=== PATIENT | female | born 1930 | race American Indian/Alaskan Native ===

== ENCOUNTER 2016-07-28 15:14 | Inpatient (IN) | payer MEDICARE ==
--- NOTE | 2016-07-28 17:49 | Emergency Department Report ---
ED Abdominal Pain HPI - General Chief Complaint: Abdominal Pain Stated Complaint: SEVERE CONSTIPATION Time Seen by Provider: 07/28/16 17:48 Source: patient Mode of arrival: Ambulatory Limitations: No Limitations - History of Present Illness Initial Comments: Family states patient has not had a bowel movement in several days. He tried Dulcolax suppository with minimal stool. They don't referred abdominal pain. They deny vomiting. There's been no recent fever. They have not given an enema. Patient has a significant cardiomyopathy and was here for sustained V. tach last year. She has a history of an umbilical hernia for which surgery obviously would not be recommended at her age. -: days(s) Associated Symptoms: denies other symptoms - Related Data Previous Rx's Medication Instructions Recorded Last Taken Type Carvedilol [Coreg] 25 mg PO BID #60 tablet 12/08/15 Unknown Rx Furosemide [Lasix TAB] 40 mg PO QDAY #30 tablet 12/09/15 Unknown Rx Lisinopril [Zestril TAB] 10 mg PO QDAY #30 tablet 12/09/15 Unknown Rx Potassium Chloride [K-Dur] 20 meq PO QDAY #30 tablet 12/09/15 Unknown Rx Allergies Allergy/AdvReac Type Severity Reaction Status Date / Time No Known Allergies Allergy Verified 12/04/15 10:21 ED Review of Systems ROS: Stated complaint: SEVERE CONSTIPATION Other details as noted in HPI Comment: Unobtainable due to pts medical conditions ED Past Medical Hx - Past Medical History Hx Hypertension: Yes Hx Heart Attack/AMI: No Hx Congestive Heart Failure: Yes Hx Diabetes: No Hx Deep Vein Thrombosis: No Hx Pulmonary Embolism: No Hx Liver Disease: No Hx Renal Disease: No Hx Sickle Cell Disease: No Hx Arthritis: Yes Hx Kidney Stones: No Hx Asthma: No Hx COPD: No Hx Tuberculosis: No Hx HIV: No Additional medical history: high cholesterol - Surgical History Hx Coronary Stent: No Hx Open Heart Surgery: No Hx Pacemaker: No Hx Internal Defibrillator: No Hx Cholecystectomy: No Hx Appendectomy: Yes Hx Breast Surgery: No Additional Surgical History: perforated appendix. hernia repair s/p appendix rupture. - Social History Smoking Status: Never Smoker Substance Use Type: None - Medications Home Medications: Home Medications Medication Instructions Recorded Confirmed Last Taken Type Carvedilol [Coreg] 25 mg PO BID #60 tablet 12/08/15 Unknown Rx Furosemide [Lasix TAB] 40 mg PO QDAY #30 tablet 12/09/15 Unknown Rx Lisinopril [Zestril TAB] 10 mg PO QDAY #30 tablet 12/09/15 Unknown Rx Potassium Chloride [K-Dur] 20 meq PO QDAY #30 tablet 12/09/15 Unknown Rx ED Physical Exam - General Limitations: No Limitations General appearance: alert, in no apparent distress - Head Head exam: Present: atraumatic, normocephalic - Eye Eye exam: Present: normal appearance. Absent: scleral icterus - ENT ENT exam: Present: mucous membranes dry - Neck Neck exam: Present: normal inspection - Respiratory Respiratory exam: Present: normal lung sounds bilaterally. Absent: respiratory distress - Cardiovascular Cardiovascular Exam: Present: regular rate, normal rhythm. Absent: systolic murmur, diastolic murmur, rubs, gallop - GI/Abdominal GI/Abdominal exam: Present: soft, normal bowel sounds, hernia (patient does have a umbilical defect but no protruding hernia sac). Absent: distended, tenderness, guarding, rebound, rigid - Extremities Exam Extremities exam: Present: normal inspection. Absent: pedal edema - Back Exam Back exam: Present: normal inspection - Neurological Exam Neurological exam: Present: CN II-XII intact (on limited exam except very hard of hearing), other (no acute focal deficit). Absent: motor sensory deficit - Psychiatric Psychiatric exam: Present: normal affect, normal mood - Skin Skin exam: Present: warm, dry, intact, normal color. Absent: rash ED Course Vital Signs 07/28/16 07/28/16 15:40 17:34 Temperature 99.4 F Pulse Rate 58 L 89 Respiratory 20 18 Rate Blood Pressure 203/113 Blood Pressure 124/76 [Right] O2 Sat by Pulse 100 98 Oximetry - Reevaluation(s) Reevaluation #1: Patient appears quite volume depleted. She has an anion gap acidosis. She is mildly hyponatremic. I don't think it would be riley to start enemas at this point with her low sodium. Her platelet count has fallen into the 80s. We will check a lactic acid level and coagulation profile. We will start her on gentle rehydration. She'll be admitted to the hospitalist service further care and evaluation. I will check some plain radiographs. She does not have signs of obstruction or incarceration of her umbilical area. She is referred to Dr. Mejia of the hospital service. 07/28/16 18:16 ED Medical Decision Making - Lab Data Result diagrams: 07/28/16 17:19 07/28/16 17:19 Laboratory Results - last 24 hr 07/28/16 17:19 WBC 8.1 RBC 3.85 Hgb 12.6 Hct 37.2 MCV 97 MCH 33 H MCHC 34 RDW 13.0 L Lymph % (Auto) 11.8 L [place] % (Auto) 7.0 Eos % (Auto) 0.1 Baso % (Auto) 0.5 Lymph # 1.0 L [place] # 0.6 Eos # 0.0 Baso # 0.0 Seg Neutrophils % 80.6 H Seg Neutrophils # 6.6 Laboratory Results - last 24 hr 07/28/16 07/28/16 17:19 17:19 WBC 8.1 RBC 3.85 Hgb 12.6 Hct 37.2 MCV 97 MCH 33 H MCHC 34 RDW 13.0 L Lymph % (Auto) 11.8 L [place] % (Auto) 7.0 Eos % (Auto) 0.1 Baso % (Auto) 0.5 Lymph # 1.0 L [place] # 0.6 Eos # 0.0 Baso # 0.0 Seg Neutrophils % 80.6 H Seg Neutrophils # 6.6 Sodium 134 L Potassium 4.1 Chloride 97.7 L Carbon Dioxide 20 L Anion Gap 20 BUN 10 Creatinine 0.6 L Estimated GFR > 60 BUN/Creatinine Ratio 16.66 Glucose 141 H Calcium 8.9 Total Bilirubin 1.20 AST 16 ALT 9 Alkaline Phosphatase 106 Total Protein 7.7 Albumin 3.9 Albumin/Globulin Ratio 1.0 Lipase 17 Critical care attestation.: If time is entered above; I have spent that time in minutes in the direct care of this critically ill patient, excluding procedure time. ED Disposition Clinical Impression: Hyponatremia, Volume depletion, Metabolic acidosis, increased anion gap, Thrombocytopenia Disposition: OP ADMITTED IP TO THIS HOSP Is pt being admited?: Yes Does the pt Need Aspirin: No Condition: Stable Instructions: Abdominal Pain (ED) Referrals: PRIMARY CARE, [Primary Care Provider] - 3-5 Days Time of Disposition: 18:18
[2016-07-28 17:57] LABS: Alanine Aminotransferase 9 units/L (7-56); Albumin 3.9 g/dL (3.9-5); Alkaline Phosphatase 106 units/L (35-129); Anion Gap 20 mmol/L; BUN/Creatinine Ratio 16.66; Blood Urea Nitrogen 10 mg/dL (7-17); Calcium 8.9 mg/dL (8.4-10.2); Carbon Dioxide 20 mmol/L (22-30); Chloride 97.7 mmol/L (98-107); Glucose 141 mg/dL (65-100); Lipase 17 units/L (13-60); Potassium 4.1 mmol/L (3.6-5.0); Sodium 134 mmol/L (137-145); Total Protein 7.7 g/dL (6.3-8.2)
[2016-07-28 18:10] LABS: Red Blood Count TNR M/mm3 (3.65-5.03); White Blood Count TNR K/mm3 (4.5-11.0)
[2016-07-28 18:11] LABS: Hematocrit TNR % (30.3-42.9); Hemoglobin TNR gm/dl (10.1-14.3); Mean Corpuscular HGB Conc TNR % (30-34); Mean Corpuscular Hemoglobin TNR pg (28-32); Mean Corpuscular Volume TNR fl (79-97)
[2016-07-28 18:12] LABS: Mean Platelet Volume TNR fl (6-12); Platelet Count TNR K/mm3 (140-440); Red Cell Distribution Width TNR % (13.2-15.2)
[2016-07-28] MEDS ORDERED: NACL 0.9% 1000 ML 1,000 ML IV ONE (18:12)
[2016-07-28 18:13] LABS: Eosinophils % (Auto) TNR % (0.0-4.3)
--- NOTE | 2016-07-28 18:13 | History and Physical Report ---
History of Present Illness Chief complaint: I feel bloated, and I cant use the bathroom History of present illness: 85 YO Female with HTN, CHF, OA, HLD presents to ED for evaluation. Pt states that she has been experiencing abdominal pain for the past 3 days with worsening symptoms over the past 12 hours. Pt has not had a regular bowel movement in 6 days. Pt has tried dulcolax without relief. Pt states that pain is 4/10, diffuse, constant, no aggrevating, or alleviating factors. Pt denies feculent vomiting, NVD, BRBPR, Unintentional weight loss, night sweats, trauma, skin rashes, synocpe, recent ill contacts. Past History Past Medical History: arthritis, heart failure, hypertension Past Surgical History: appendectomy, bowel surgery Social history: . denies: smoking, alcohol abuse, prescription drug abuse Family history: hypertension Medications and Allergies Allergies Allergy/AdvReac Type Severity Reaction Status Date / Time No Known Allergies Allergy Verified 12/04/15 10:21 Home Medications Medication Instructions Recorded Confirmed Last Taken Type Carvedilol [Coreg] 25 mg PO BID #60 tablet 12/08/15 07/28/16 2 Days Ago Rx Furosemide [Lasix TAB] 40 mg PO QDAY #30 tablet 12/09/15 07/28/16 2 Days Ago Rx Lisinopril [Zestril TAB] 10 mg PO QDAY #30 tablet 12/09/15 07/28/16 2 Days Ago Rx Potassium Chloride [K-Dur] 20 meq PO QDAY #30 tablet 12/09/15 07/28/16 2 Days Ago Rx Review of Systems All systems: negative Gastrointestinal: abdominal pain Exam - Constitutional Vitals: Temp Pulse Resp BP Pulse Ox 99.4 F 89 18 124/76 98 07/28/16 15:40 07/28/16 17:34 07/28/16 17:34 07/28/16 17:34 07/28/16 17:34 General appearance: Present: no acute distress, well-nourished - EENT Eyes: Present: PERRL ENT: hearing intact, clear oral mucosa - Neck Neck: Present: supple, normal ROM - Respiratory Respiratory effort: normal Respiratory: bilateral: CTA - Cardiovascular Heart Sounds: Present: S1 & S2. Absent: rub, click - Extremities Extremities: pulses symmetrical, No edema Peripheral Pulses: within normal limits - Abdominal General gastrointestinal: Present: soft, non-tender, non-distended, normal bowel sounds Female genitourinary: Present: normal - Integumentary Integumentary: Present: clear, warm, dry - Musculoskeletal Musculoskeletal: gait normal, strength equal bilaterally - Psychiatric Psychiatric: appropriate mood/affect, intact judgment & insight - Neurologic Neurologic: CNII-XII intact, moves all extremities Results - Labs CBC & Chem 7: 07/28/16 20:55 07/28/16 17:19 Labs: Abnormal lab results 07/28/16 07/28/16 Range/Units 17:19 17:19 MCH 33 H (28-32) pg RDW 13.0 L (13.2-15.2) % Lymph % (Auto) 11.8 L (13.4-35.0) % Lymph # 1.0 L (1.2-5.4) K/mm3 Seg Neutrophils % 80.6 H (40.0-70.0) % Sodium 134 L (137-145) mmol/L Chloride 97.7 L (98-107) mmol/L Carbon Dioxide 20 L (22-30) mmol/L Creatinine 0.6 L (0.7-1.2) mg/dL Glucose 141 H (65-100) mg/dL Assessment and Plan - Patient Problems (1) Abdominal pain Current Visit: Yes Status: Acute Qualifiers: Abdominal location: A Plan to address problem: Serial abdominal exam, bowel regimen, supportive care. (2) Constipation Current Visit: Yes Status: Acute Qualifiers: Constipation type: C Plan to address problem: serial abdominal exam, bowel regimen, stool softener, high fiber diet, bowel habit training (3) Accelerated hypertension Current Visit: Yes Status: Acute Plan to address problem: monitor bp q shift, resume home medication, (4) Systolic heart failure Onset Date: 12/04/15 Current Visit: No Status: Chronic Qualifiers: Heart failure chronicity: H Qualified Code(s): I50.23 - Acute on chronic systolic (congestive) heart failure Plan to address problem: Stable, resume home medication, fluid restriction, low sodium diet, monitor uop q shift, (5) DVT prophylaxis Onset Date: 12/04/15 Current Visit: No Status: Acute
[2016-07-28 18:14] LABS: Basophils % (Auto) TNR % (0.0-1.8)
[2016-07-28 18:15] LABS: Diff Status TNR
[2016-07-28] MEDS ORDERED: MILK OF MAGNESIA PO PRN (18:15)
[2016-07-28] MEDS ORDERED: TYLENOL PO PRN (18:15)
[2016-07-28] MEDS ORDERED: DUONEB 0.5 MG-3 MG/3 ML SOLN IH PRN (18:15)
[2016-07-28] MEDS ORDERED: ZOFRAN IV PRN (18:15)
[2016-07-28] MEDS ORDERED: DULCOLAX PR PRN (18:15)
[2016-07-28] MEDS ORDERED: SENOKOT S PO PRN (18:20)
[2016-07-28] MEDS ORDERED: FLEET MINERAL OIL PR PRN (18:21)
[2016-07-28] MEDS ORDERED: PROVENTIL IH PRN (18:30)
[2016-07-28 19:04] LABS: INR 1.06 (0.87-1.13)
[2016-07-28 19:05] LABS: Partial Thromboplastin Time 38.7 Sec. (24.2-36.6)
[2016-07-28 19:15] LABS: Bilirubin,Urine NEG (Negative); Blood,Urine SM (Negative); Ketones,Urine NEG (Negative); Leukocyte Esterase,Urine NEG (Negative); Mucus,Urine FEW /HPF; Nitrite,Urine NEG (Negative); Protein,Urine <15 mg/dL mg/dL (Negative); Urobilinogen,Urine < 2.0 mg/dL (<2.0)
[2016-07-28 21:03] LABS: Basophils % (Auto) 0.5 % (0.0-1.8); Hematocrit 38.4 % (30.3-42.9); Hemoglobin 12.9 gm/dl (10.1-14.3); Mean Corpuscular HGB Conc 34 % (30-34); Mean Corpuscular Hemoglobin 33 pg (28-32); Mean Corpuscular Volume 98 fl (79-97); Red Blood Count 3.91 M/mm3 (3.65-5.03); Red Cell Distribution Width 12.9 % (13.2-15.2); White Blood Count 9.9 K/mm3 (4.5-11.0)
[2016-07-28 21:05] LABS: Platelet Count 90 K/mm3 (140-440)
[2016-07-28] MEDS: COREG PO SCH (21:07)
--- NOTE | 2016-07-29 08:23 | Progress Note ---
Assessment and Plan Assessment and plan: Patient is 85 yo woman with a history of DLP, HTN, CHF, chronic anemia, chronic thrombocytopenia, non-ischemic DCM with EF 25-30%, moderate-severe MR, moderate TR, moderate severe pulmonary hypertension, RVSP 64 mmhg on 2D Echo 12/14/2015 and NSVT with [facility] 11/2015 who presented with abd pain and constipation. He bp was 203/113 hr 58. Chest x-ray negative. Patient is extremely hard of hearing; therefore, makes obtaining history difficult. -Abdominal pain related to constipation and ventral hernia. Prior notes says she was not a candidate for surgery per general surgeon. -Accelerated hypertension, restart home medications -Dehydration -Chronic CHF -Constipation, patient has had multiple bowel movement; therefore, be discharged home History Interval history: Pt seen and examined. Follow up for constipation which has resolved. She denies chest pain shortness of breath. Hospitalist Physical - Physical exam Narrative exam: GEN: Thin frail NAD, AWAKE, ALERT, ORIENTATED 3 HEENT: NCAT, PERRL, EOMI, OP CLEAR NECK: SUPPLE, NO THYROMEGALY, NO JVD, NO LAD CVS: RRR, NORMAL S1S2 LUNGS/CHEST: CTA B, NORMAL CHEST EXPANSION B, GOOD AIR ENTRY B ABD: SOFT NTND, significant ventral hernia but soft and depressible, GBS, NO REBOUND OR GUARDING EXT/SKIN: NO SIGNIFICANT EDEMA OR RASH MSK: FROM X 4 EXTREMITIES NEURO: CN 2-12 GROSSLY INTACT except very hard of hearing PSY: CALM - Constitutional Vitals: Temp Pulse Resp BP Pulse Ox 99.9 F H 104 H 18 148/70 99 07/28/16 20:58 07/28/16 22:00 07/28/16 20:58 07/28/16 21:07 07/28/16 20:58 Results - Labs CBC & Chem 7: 07/28/16 20:55 07/28/16 17:19 Labs: Laboratory Last Values WBC 9.9 K/mm3 (4.5-11.0) 07/28/16 20:55 RBC 3.91 M/mm3 (3.65-5.03) 07/28/16 20:55 Hgb 12.9 gm/dl (10.1-14.3) 07/28/16 20:55 Hct 38.4 % (30.3-42.9) 07/28/16 20:55 MCV 98 fl (79-97) H 07/28/16 20:55 MCH 33 pg (28-32) H 07/28/16 20:55 MCHC 34 % (30-34) 07/28/16 20:55 RDW 12.9 % (13.2-15.2) L 07/28/16 20:55 Plt Count 90 K/mm3 (140-440) L 07/28/16 20:55 Lymph % (Auto) 15.3 % (13.4-35.0) 07/28/16 20:55 [place] % (Auto) 7.2 % (0.0-7.3) 07/28/16 20:55 Eos % (Auto) 0.0 % (0.0-4.3) 07/28/16 20:55 Baso % (Auto) 0.5 % (0.0-1.8) 07/28/16 20:55 Lymph # 1.5 K/mm3 (1.2-5.4) 07/28/16 20:55 [place] # 0.7 K/mm3 (0.0-0.8) 07/28/16 20:55 Eos # 0.0 K/mm3 (0.0-0.4) 07/28/16 20:55 Baso # 0.1 K/mm3 (0.0-0.1) 07/28/16 20:55 Add Manual Diff TNR 07/28/16 17:19 Seg Neutrophils % 77.0 % (40.0-70.0) H 07/28/16 20:55 Seg Neutrophils # 7.6 K/mm3 (1.8-7.7) 07/28/16 20:55 PT 13.7 Sec. (12.2-14.9) 07/28/16 18:32 INR 1.06 (0.87-1.13) 07/28/16 18:32 APTT 38.7 Sec. (24.2-36.6) H 07/28/16 18:32 Sodium 134 mmol/L (137-145) L 07/28/16 17:19 Potassium 4.1 mmol/L (3.6-5.0) 07/28/16 17:19 Chloride 97.7 mmol/L (98-107) L 07/28/16 17:19 Carbon Dioxide 20 mmol/L (22-30) L 07/28/16 17:19 Anion Gap 20 mmol/L 07/28/16 17:19 BUN 10 mg/dL (7-17) 07/28/16 17:19 Creatinine 0.6 mg/dL (0.7-1.2) L 07/28/16 17:19 Estimated GFR > 60 ml/min 07/28/16 17:19 BUN/Creatinine Ratio 16.66 % 07/28/16 17:19 Glucose 141 mg/dL (65-100) H 07/28/16 17:19 Lactic Acid 1.40 mmol/L (0.7-2.0) 07/28/16 18:32 Calcium 8.9 mg/dL (8.4-10.2) 07/28/16 17:19 Total Bilirubin 1.20 mg/dL (0.1-1.2) 07/28/16 17:19 AST 16 units/L (5-40) 07/28/16 17:19 ALT 9 units/L (7-56) 07/28/16 17:19 Alkaline Phosphatase 106 units/L (35-129) 07/28/16 17:19 NT-Pro-B Natriuret Pep 6015 pg/mL (0-900) H 07/28/16 18:32 Total Protein 7.7 g/dL (6.3-8.2) 07/28/16 17:19 Albumin 3.9 g/dL (3.9-5) 07/28/16 17:19 Albumin/Globulin Ratio 1.0 % 07/28/16 17:19 Lipase 17 units/L (13-60) 07/28/16 17:19 Urine Color Yellow (Yellow) 07/28/16 18:50 Urine Turbidity Clear (Clear) 07/28/16 18:50 Urine pH 5.0 (5.0-7.0) 07/28/16 18:50 Ur Specific [place] 1.010 (1.003-1.030) 07/28/16 18:50 Urine Protein <15 mg/dl mg/dL (Negative) 07/28/16 18:50 Urine Glucose (UA) Neg mg/dL (Negative) 07/28/16 18:50 Urine Ketones Neg mg/dL (Negative) 07/28/16 18:50 Urine Blood Sm (Negative) 07/28/16 18:50 Urine Nitrite Neg (Negative) 07/28/16 18:50 Urine Bilirubin Neg (Negative) 07/28/16 18:50 Urine Urobilinogen < 2.0 mg/dL (<2.0) 07/28/16 18:50 Ur Leukocyte Esterase Neg (Negative) 07/28/16 18:50 Urine WBC (Auto) 1.0 /HPF (0.0-6.0) 07/28/16 18:50 Urine RBC (Auto) 2.0 /HPF (0.0-6.0) 07/28/16 18:50 Urine Mucus Few /HPF 07/28/16 18:50
--- NOTE | 2016-07-29 09:03 | XRay Report ---
AP CHEST: HISTORY: Hypertension AP view of the chest demonstrates a normal mediastinal and cardiac contour with clear lungs and normal bony and soft tissue structures. IMPRESSION: Unremarkable AP chest.
--- NOTE | 2016-07-29 09:03 | XRay Report ---
AP ABDOMEN: History: Abdominal pain. There is gas mixed with stool throughout the colon. There are no dilated loops of bowel or air-fluid levels. There is no free intraperitoneal gas. IMPRESSION: Fecal retention.
[2016-07-29] MEDS: COREG PO SCH (09:59)
[2016-07-29 10:00] VITALS: BP 125/71
[2016-07-29] MEDS ORDERED: LASIX PO SCH (10:00)
[2016-07-29] MEDS ORDERED: K-DUR PO SCH (10:00)
[2016-07-29] MEDS ORDERED: ZESTRIL PO SCH (10:00)
--- NOTE | 2016-07-29 10:52 | Discharge Summary ---
Providers - Providers Date of Admission: 07/28/16 18:15 Date of discharge: 07/29/16 Attending physician: ELIJAH BULLARD Primary care physician: [employer] Hospitalization Condition: Fair Hospital course: Patient is 85 yo woman with a history of DLP, HTN, CHF, chronic anemia, chronic thrombocytopenia, non-ischemic DCM with EF 25-30%, moderate-severe MR, moderate TR, moderate severe pulmonary hypertension, RVSP 64 mmhg on 2D Echo 12/14/2015 and NSVT with [facility] 11/2015 (i dont know if she still has the Lifevest at home ) who presented with abd pain and constipation. He bp was 203/113 hr 58. Chest x-ray negative. Patient is extremely hard of hearing; therefore, makes obtaining history difficult. -Abdominal pain related to constipation and ventral hernia. Prior notes says she was not a candidate for surgery per general surgeon. -Accelerated hypertension, restart home medications -Dehydration -Chronic CHF -Constipation, patient has had multiple bowel movement; therefore, be discharged home Disposition: DISCHARGED TO HOME OR SELFCARE Time spent for discharge: 38 minutes Core Measure Documentation - Palliative Care Palliative Care/ Comfort Measures: Not Applicable - Core Measures Any of the following diagnoses?: none - VTE Discharge Requirements Deep Vein Thrombosis/Pulmonary Embolism Present on Admission: No Has pt received <5 days of overlap therapy or INR<2.0: No Anticoagulant overlap therapy prescribed at discharge: No Contraindication No Overlap Therapy order at DC: Not Indicated Exam - Physical Exam Narrative exam: GEN: Thin frail NAD, AWAKE, ALERT, ORIENTATED 3 HEENT: NCAT, PERRL, EOMI, OP CLEAR NECK: SUPPLE, NO THYROMEGALY, NO JVD, NO LAD CVS: RRR, NORMAL S1S2 LUNGS/CHEST: CTA B, NORMAL CHEST EXPANSION B, GOOD AIR ENTRY B ABD: SOFT NTND, significant ventral hernia but soft and depressible, GBS, NO REBOUND OR GUARDING EXT/SKIN: NO SIGNIFICANT EDEMA OR RASH MSK: FROM X 4 EXTREMITIES NEURO: CN 2-12 GROSSLY INTACT except very hard of hearing PSY: CALM - Constitutional Vitals: Temp Pulse Resp BP Pulse Ox 97.6 F 72 18 125/71 100 07/29/16 08:00 07/29/16 09:59 07/29/16 08:00 07/29/16 09:59 07/29/16 08:00 Plan Activity: up only with assistance, fall precautions, other (no strenous activites until cleared by PCP and/or cardiology) Diet: low salt Additional Instructions: Take Dulcolax suppository as needed for constipation. Daily MiraLAX is also helpful, This medication can be obtained [id number] Follow up with: PRIMARY CARE, [Primary Care Provider] - 3-5 Days
--- NOTE | 2016-07-29 11:08 | Admit Criteria Form ---
Admission Criteria Documentation: DEHYDRATION Clinical Indications for Admission to Inpatient Care (Place 'X' for any and all applicable criteria): Admission is indicated for ANY ONE of the following (1)(2)(3)(4)(5): [X]I. Inpatient admission required rather than observation care (see Dehydration: Observation Care guideline as appropriate) because of ANY ONE of the following: [ ]a) Vomiting that is severe or persistent [ ]b) Severe electrolyte abnormalities requiring inpatient care [ ]c) Hemodynamic instability [ ]d) IV fluid to replace significant ongoing losses (greater than 3 L/m2 per day (10) (11) [ ]e) Parenteral nutrition regimen that must be implemented on inpatient basis [X]f) Other condition,treatment or monitoring requiring inpatient admission [ ]II. Serious cause for dehydration requiring acute hospitalization (eg, bowel obstruction, increased intracranial pressure, infectious cause) Extended stay beyond goal length of stay may be needed for(1)(3 )(4)(17): [ ]a) Chronic severe dehydration [ ]b) Persistent vital sign changes, severe electrolyte imbalance, or diagnosed cause of dehydration that requires continued hospitalization (eg, bowel obstruction, increased intracranial pressure) [ ]c) Older patients (65 years or older) [ ]d) Severe comorbid illness (eg, renal failure, heart failure, poorly controlled diabetes) The original [employer] content created by [employer] has been revised. The portions of the content which have been revised are identified through the use of italic text or in bold, and [facility] has neither reviewed nor approved the modified material. All other unmodified content is copyright [employer]. Please see references footnoted in the original [employer] edition 2016 Admission Criteria Met: Yes
== END 2016-07-29 16:58 | disposition home health service (06) | DRG 394 ==
LOC: ED 15:14 → CC2 18:15
PROVIDERS: ADMIT Internal Medicine; ATTEND Internal Medicine
DX: K43.9 Ventral hernia without obstruction or gangrene (principal); E87.1 Hypo-osmolality and hyponatremia; I50.22 Chronic systolic (congestive) heart failure; I42.0 Dilated cardiomyopathy; E87.2 Acidosis; K59.00 Constipation, unspecified; E78.5 Hyperlipidemia, unspecified; I11.0 Hypertensive heart disease with heart failure; D64.9 Anemia, unspecified; D69.6 Thrombocytopenia, unspecified; E86.0 Dehydration; M19.90 Unspecified osteoarthritis, unspecified site; Z82.49 Family history of ischemic heart disease and other diseases of the circulatory system
CPT/HCPCS: 36415; 71010; 74000; 80053; 81001; 82140; 83690; 83880; 85025; 85610; 85730; 87086; 99285; J7030

== ENCOUNTER 2017-05-13 02:47 | Emergency (ER) | payer MEDICARE ==
[2017-05-13 03:28] LABS: Basophils % (Auto) 0.8 % (0.0-1.8); Eosinophils % (Auto) 0.5 % (0.0-4.3); Hemoglobin 12.1 gm/dl (10.1-14.3); Lymphocytes % (Auto) 23.5 % (13.4-35.0); Mean Corpuscular HGB Conc 34 % (30-34); Mean Corpuscular Hemoglobin 34 pg (28-32); Mean Corpuscular Volume 100 fl (79-97); Monocytes # (Auto) 0.4 K/mm3 (0.0-0.8); Monocytes % (Auto) 8.8 % (0.0-7.3); Red Cell Distribution Width 13.6 % (13.2-15.2)
[2017-05-13 03:53] LABS: Alanine Aminotransferase 80 units/L (7-56); Albumin 3.6 g/dL (3.9-5); BUN/Creatinine Ratio 33; Blood Urea Nitrogen 20 mg/dL (7-17); Calcium 8.4 mg/dL (8.4-10.2); Hemolysis Index 20
[2017-05-13 04:08] LABS: Platelet Count 103 K/mm3 (140-440)
[2017-05-13 09:02] VITALS: BP 156/84
[2017-05-13 09:35] LABS: Bacteria,Urine 1+ /HPF (Negative); Bilirubin,Urine NEG (Negative); Blood,Urine SM (Negative); Color,Urine Yellow (Yellow); Mucus,Urine FEW /HPF; Nitrite,Urine NEG (Negative); Protein,Urine <15 mg/dL mg/dL (Negative)
== END 2017-05-13 11:52 | disposition left against medical advice (07) ==
LOC: ED 02:47
DX: R10.9 Unspecified abdominal pain (principal); Z53.21 Procedure and treatment not carried out due to patient leaving prior to being seen by health care provider
CPT/HCPCS: 36415; 80053; 81001; 85025